=== PATIENT | female | born 1985 | race Two or more races ===

== ENCOUNTER 2018-04-02 08:30 | Observation (INO) | payer MEDICAID, OTHER ==
[~2018-04-02] VITALS: Ht 147.3 cm; Wt 72.0 kg
[2018-04-02] MEDS ORDERED: ONDANSETRON ODT 4 MG PO ONE (09:00)
[2018-04-02] MEDS ORDERED: SODIUM CHLORIDE FLUSH 10ML SYR IVF ONE (09:00)
[2018-04-02 09:09] LABS: BASOPHILS # (AUTO) 0.02 x10^3/uL (0-0.1); BASOPHILS % (AUTO) 0 % (0-1); EOSINOPHILS # (AUTO) 0.05 x10^3/uL (0-0.4); EOSINOPHILS % (AUTO) 1 % (1-7); LYMPHOCYTES # (AUTO) 1.87 x10^3/uL (1-3.4); LYMPHOCYTES % (AUTO) 25 % (22-44); MD NO; MEAN CORPUSCULAR HEMOGLOBIN 25.8 pg (27.0-34.8); MEAN CORPUSCULAR HGB CONC 32.9 g/dL (32.4-35.8); MEAN CORPUSCULAR VOLUME 78.4 fL (80-100); MEAN PLATELET VOLUME 9.3 fL (7.4-10.4); MONOCYTES # (AUTO) 0.35 x10^3/uL (0.2-0.8); MONOCYTES % (AUTO) 5 % (2-9); NEUTROPHILS % (AUTO) 69 % (42-75); PLATELET COUNT 267 x10^3/uL (130-400); RED BLOOD COUNT 5.33 x10^6/uL (3.82-5.3); RED CELL DISTRIBUTION WIDTH 14.4 % (9.6-15.2)
[2018-04-02] MEDS ORDERED: MORPHINE SULFATE 4 MG/ML, 1ML ONE ×2 (09:11→11:05)
[2018-04-02] MEDS ORDERED: ONDANSETRON ODT 4 MG ONE (09:11)
[2018-04-02 09:21] LABS: ALANINE AMINOTRANSFERASE 27 U/L (12-78); ALBUMIN 3.8 g/dL (3.4-5.0); ANION GAP 7 mmol/L (5-15); CALCIUM 7.8 mg/dL (8.5-10.1); CHLORIDE 111 mmol/L (98-107); CREATININE 0.57 mg/dL (0.55-1.02)
[2018-04-02 09:26] LABS: ALKALINE PHOSPHATASE 79 U/L (45-117); BILIRUBIN,TOTAL 0.3 mg/dL (0.2-1.0); TOTAL PROTEIN 7.8 g/dL (6.4-8.2)
[2018-04-02] MEDS: MORPHINE SULFATE 4 MG/ML, 1ML IVPush PRN ×2 (09:37→11:07)
[2018-04-02] MEDS ORDERED: SODIUM CHLORIDE 0.9% 1,000 ML IV ONE ×2 (10:56→12:29)
[2018-04-02] MEDS ORDERED: HYDROmorphone 2 MG/ML, 1ML IVPush PRN (11:00)
[2018-04-02] MEDS ORDERED: SODIUM CHLORIDE FLUSH 10ML SYR IVF PRN (12:30)
[2018-04-02] MEDS ORDERED: CEFOTETAN PMX 1GM/50ML 50 ML IV ONE (13:00)
[2018-04-02 13:08] VITALS: BP 112/69
[2018-04-02] MEDS ORDERED: BUPIVACAINE/PF-EPI 0.5% 1:200K ONE (15:51)
[2018-04-02] MEDS ORDERED: FENTANYL PF 250 MCG/5ML ONE (16:21)
[2018-04-02] MEDS ORDERED: MIDAZOLAM 1 MG/ML, 2ML ONE (16:21)
[2018-04-02] MEDS ORDERED: DEXAMETHASONE 4 MG/ML, 1ML ONE ×2 (16:24→16:25)
[2018-04-02] MEDS ORDERED: PROPOFOL 10 MG/ML, 20ML ONE (16:24)
[2018-04-02] MEDS ORDERED: ROCURONIUM 10MG/ML,5ML ONE (16:24)
[2018-04-02] MEDS ORDERED: SUCCINYLCHOLINE 20 MG/ML, 10ML ONE (16:24)
[2018-04-02] MEDS ORDERED: ONDANSETRON 2MG/ML, 2ML ONE ×2 (16:25→18:04)
[2018-04-02] MEDS ORDERED: GLYCOPYRROLATE 0.2MG/1ML, 5ML ONE (16:28)
[2018-04-02] MEDS ORDERED: NEOSTIGMINE 1 MG/ML, 10ML ONE (16:28)
[2018-04-02] MEDS ORDERED: CEFOTETAN 1 GM ONE (16:28)
[2018-04-02 16:36] LABS: HCG UR SG 1.017 (1.003-1.030); MICROSCOPIC AUTO
[2018-04-02 16:37] LABS: CULTURE INDICATED? NO
[2018-04-02] MEDS ORDERED: BUPIVACAINE/PF-EPI 0.5% 1:200K INFIL ONE (16:49)
[2018-04-02] MEDS ORDERED: HYDROmorphone 1 MG/ML, 1ML IV PRN (17:00)
[2018-04-02] MEDS ORDERED: ACETAMINOPHEN 325 MG TABLET PO PRN (17:00)
[2018-04-02] MEDS ORDERED: MEPERIDINE/PF 25MG/0.5ML IVPush PRN (17:00)
[2018-04-02] MEDS ORDERED: OXYcodone 5 MG/5 ML ORAL.SOL UDC PO PRN (17:00)
[2018-04-02] MEDS ORDERED: ONDANSETRON ODT 8 MG PO PRN (17:00)
[2018-04-02] MEDS ORDERED: MIDAZOLAM 1 MG/ML, 2ML IV PRN (17:00)
[2018-04-02] MEDS ORDERED: HALOPERIDOL 5 MG/ML IV PRN (17:00)
[2018-04-02] MEDS ORDERED: PROMETHAZINE 25 MG/ML, 1ML IV PRN (17:00)
[2018-04-02] MEDS ORDERED: ALBUTEROL SULFATE 2.5 MG/3 ML NPPB PRN (17:00)
[2018-04-02] MEDS ORDERED: PROMETHAZINE 12.5 MG SUPP PR PRN (17:00)
[2018-04-02] MEDS ORDERED: LABETALOL 5MG/ML, 20ML IV PRN (17:00)
[2018-04-02] MEDS ORDERED: EPHEDRINE 50 MG/ML, 1ML IVPush PRN (17:00)
[2018-04-02] MEDS ORDERED: MORPHINE SULFATE 4 MG/ML, 1ML IVPush PRN ×2 (17:00→21:00)
[2018-04-02] MEDS ORDERED: DIAZEPAM 5 MG/ML, 2ML IVPush PRN (17:00)
[2018-04-02] MEDS ORDERED: hydrALAzine 20 MG/ML, 1ML IV PRN (17:00)
[2018-04-02] MEDS ORDERED: ONDANSETRON 2MG/ML, 2ML IV PRN (17:00)
[2018-04-02] MEDS ORDERED: FENTANYL PF 100 MCG/2ML ONE (17:38)
[2018-04-02] MEDS: FENTANYL PF 100 MCG/2ML IV PRN ×2 (17:45→18:00)
[2018-04-02] MEDS ORDERED: OXYcodone 5 MG/5 ML ORAL.SOL UDC ONE (17:47)
[2018-04-02 19:57] VITALS: BP 118/80
[2018-04-02] MEDS ORDERED: ONDANSETRON 2MG/ML, 2ML IVPush PRN (21:00)
[2018-04-02] MEDS: D5%-0.45NACL+KCL 20MEQ 1,000 ML IV SCH (21:50)
[2018-04-02] MEDS: OXYcodone/APAP 7.5/325MG TABLET PO PRN (21:51)
[2018-04-03] VITALS: BP 114/70
[2018-04-03 04:11] VITALS: BP 115/71
[2018-04-03] MEDS: OXYcodone/APAP 7.5/325MG TABLET PO PRN ×2 (04:14→10:03)
[2018-04-03] MEDS: D5%-0.45NACL+KCL 20MEQ 1,000 ML IV SCH (06:08)
[2018-04-03 06:59] VITALS: BP 106/69
[2018-04-03] MEDS ORDERED: ONDA4TAB7 PO (10:25)
[2018-04-03] MEDS ORDERED: OXYC-306 PO (10:25)
[2018-04-03 12:50] VITALS: BP 102/64
[2018-04-03] MEDS ORDERED: ONDANSETRON ODT 4 MG ONE (13:04)
[2018-04-03] MEDS ORDERED: ONDANSETRON ODT 4 MG PO PRN (13:30)
== END 2018-04-03 15:10 | disposition home or self-care (01) ==
LOC: ED 10:56 → EDIP 12:29 → INTOOBSV 12:29 → 4NOR 12:58 → DCLOUNGE 04-03 14:50
PROVIDERS: ADMIT Surgery; ATTEND Surgery
DX: K80.62 Calculus of gallbladder and bile duct with acute cholecystitis without obstruction (principal); K82.8 Other specified diseases of gallbladder
CPT/HCPCS: 36415; 47562; 76700; 80053; 81001; 81025; 83690; 84703; 85025; 88304; 96365; 96375; 96376; 99285; G0378; J0330; J1100; J1170; J2250; J2405; J2704; J2710; J3010; J3480; J3490; J7030; Q0162; 96374

== ENCOUNTER 2020-01-29 13:53 | Day surgery (SDC) | payer OTHER ==
[~2020-01-29] VITALS: Ht 147.3 cm; Wt 67.8 kg
[~2020-01-29 13:53] MED LIST: ONDA4TAB7 PO; OXYC-306 PO
[2020-01-29] MEDS ORDERED: LACTATED RINGERS 1,000 ML IV SCH (14:13)
[2020-01-29 14:16] VITALS: BP 121/79
[2020-01-29] MEDS ORDERED: CHLORHEXIDINE 15 ML UDC ONE (14:22)
[2020-01-29 14:23] LABS: HCG UR SG 1.025 (1.003-1.030)
[2020-01-29] MEDS ORDERED: HYDROcodone/APAP 7.5-325MG/15ML UDC PO PRN (14:30)
[2020-01-29] MEDS ORDERED: PROMETHAZINE 25 MG/ML, 1ML IVPush PRN (14:30)
[2020-01-29] MEDS ORDERED: FENTANYL PF 100 MCG/2ML IV PRN (14:30)
[2020-01-29] MEDS ORDERED: morphine SULFATE 10 MG/ML, 1ML IVPush PRN (14:30)
[2020-01-29] MEDS ORDERED: CHLORHEXIDINE 15 ML UDC MM ONE (14:30)
[2020-01-29] MEDS ORDERED: MEPERIDINE/PF 25MG/0.5ML IVPush PRN (14:30)
[2020-01-29] MEDS ORDERED: OXYcodone 5 MG/5 ML ORAL.SOL UDC PO PRN (14:30)
[2020-01-29] MEDS ORDERED: MIDAZOLAM 1 MG/ML, 2ML ONE (15:05)
[2020-01-29] MEDS ORDERED: FENTANYL PF 100 MCG/2ML ONE (15:05)
[2020-01-29] MEDS ORDERED: CEFAZOLIN 1,000 MG ONE (15:49)
[2020-01-29] MEDS ORDERED: PROPOFOL 10 MG/ML, 20ML ONE (15:49)
[2020-01-29] MEDS ORDERED: ONDANSETRON 2MG/ML, 2ML ONE (15:49)
[2020-01-29] MEDS ORDERED: DEXAMETHASONE 4 MG/ML, 1ML ONE (15:49)
== END 2020-01-29 17:50 | disposition home or self-care (01) ==
LOC: OR 13:53
PROVIDERS: ATTEND Obstetrics & Gynecology
DX: R87.613 High grade squamous intraepithelial lesion on cytologic smear of cervix (HGSIL) (principal); Z88.0 Allergy status to penicillin; Z88.8 Allergy status to other drugs, medicaments and biological substances; Z79.899 Other long term (current) drug therapy; Z90.49 Acquired absence of other specified parts of digestive tract; Z98.890 Other specified postprocedural states
CPT/HCPCS: 57520; 81025; 88305; J0690; J1100; J2250; J2405; J2704; J3010; J7120